=== PATIENT | female | born 1970 | race Caucasian/White ===

== ENCOUNTER → 2020-09-01 | Outpatient (CLI) | payer BC ==
--- NOTE | 2020-09-01 09:59 | MM ---
Reason for exam: clinical finding. Last mammogram was performed 2 months ago. History: Patient had first child at age 30. Family history of breast cancer in grandmother at age 60. Took hormonal contraceptives beginning at age 18. Physical Findings: Nurse did not find any significant physical abnormalities on exam. MG 3D Diag Mammo W/Cad LT CC, MLO, and LM view(s) were taken of the left breast. Prior study comparison: June 30, 2020, mammogram, performed at [facility]. October 21, 2018, mammogram, performed at [facility]. The breast tissue is heterogeneously dense. This may lower the sensitivity of mammography. There is no discrete abnormality. These results were verbally communicated with the patient and result sheet given to the patient on 09/01/20. ASSESSMENT: Negative, BI-RAD 1 RECOMMENDATION: Routine screening mammogram of both breasts in 11 months. Back on schedule for July 2021.
--- NOTE | 2020-09-01 10:01 | USB ---
Reason for exam: clinical finding. History: Patient had first child at age 30. Family history of breast cancer in grandmother at age 60. Took hormonal contraceptives beginning at age 18. US Breast LT Left complete breast ultrasound includes all four quadrants, the retroareolar region and axilla. Finding demonstrates a 8 x 3 x 6mm oval cystic lesion at 3 o'clock, a 4 x 3 x 4mm oval, cystic lesion at 4 o'clock, a 4 x 2 x 8mm oval, mixed lesion at 9 o'clock, probable debris filled cyst and a 9 x 5 x 11mm lobular, cystic lesion at 11 o'clock. These results were verbally communicated with the patient and result sheet given to the patient on 09/01/20. ASSESSMENT: Probably benign, BI-RAD 3 RECOMMENDATION: Ultrasound of the left breast in 6 months.
== END | disposition home or self-care (01) ==
LOC: RADMAMWWP 07:03
DX: N63.20 Unspecified lump in the left breast, unspecified quadrant (principal)
CPT/HCPCS: 77061; 77065